=== PATIENT | female | born 1995 | race Hispanic/Latino ===

== ENCOUNTER 2019-05-03 18:10 | Emergency (ER) | payer SELFPAY ==
[~2019-05-03] VITALS: Ht 160 cm; Wt 65.8 kg
[2019-05-03] MEDS ORDERED: DEXAMETHASONE SOD PHOS 10 MG/1 ML VIAL IM ONE (18:30)
[2019-05-03] MEDS ORDERED: DIAZEPAM 2 MG TAB PO ONE (18:30)
[2019-05-03] MEDS ORDERED: KETOROLAC TROMETHAMINE 60 MG/2 ML VIAL IM ONE (18:30)
[2019-05-03] MEDS ORDERED: DIAZEPAM 5 MG TAB PO ONE (18:45)
[2019-05-03 19:24] VITALS: BP 136/85
[2019-05-03 19:29] LABS: BILIRUBIN,URINE NEGATIVE (NEGATIVE); CLARITY,URINE SL CLOUDY (CLEAR); COLOR,URINE YELLOW (YELLOW); KETONES,URINE 1+ (NEGATIVE); LEUKOCYTE ESTERASE ,URINE NEGATIVE (NEGATIVE); NITRITE,URINE NEGATIVE (NEGATIVE); PROTEIN,URINE DIPSTICK TRACE (NEGATIVE); URINE UROBILINOGEN 1 mg/dL (0.2 - 1)
[2019-05-03 19:34] LABS: BACTERIA,URINE MODERATE /HPF; EPITHELIAL CELLS,URINE FEW /LPF
== END 2019-05-03 19:41 | disposition home or self-care (01) ==
LOC: ER 18:10
DX: S39.012A Strain of muscle, fascia and tendon of lower back, initial encounter (principal); M62.830 Muscle spasm of back
CPT/HCPCS: 81001; 81025; 99283; J1100; J1885